=== PATIENT | female | born 1970 | race Caucasian/White ===

== ENCOUNTER 2021-11-16 13:23 | Emergency (ER) | payer SELFPAY ==
[~2021-11-16] VITALS: Ht 160 cm; Wt 88.9 kg
[2021-11-16 14:23] VITALS: BP 133/79
[2021-11-16] MEDS ORDERED: ACETAMINOPHEN EXTRA STRENGTH 500 MG TAB PO ONE (14:30)
[2021-11-16] MEDS ORDERED: ONDANSETRON 4 MG ODT PO ONE (14:35)
--- NOTE | 2021-11-16 14:50 | NUR ---
COVID CPR SWAB DONE.
[2021-11-16] MEDS ORDERED: ONDA-188 SL (15:37)
[2021-11-16] MEDS ORDERED: ACET-10509 PO (15:37)
[2021-11-16] MEDS ORDERED: ALBU0.0912 IH (15:37)
[2021-11-16] MEDS ORDERED: PROM118S5 PO (15:37)
[2021-11-16] MEDS ORDERED: AZIT250T4 PO (15:37)
[2021-11-16] MEDS ORDERED: PRED10TA5 PO (15:37)
--- NOTE | 2021-11-16 16:14 | NUR ---
Patient discharged with v/s stable. Written and verbal after care instructions given and explained. Patient alert, oriented and verbalized understanding of instructions. Ambulatory with steady gait. All questions addressed prior to discharge. ID band removed. Patient advised to follow up with PMD. Rx of TYLENOL, ALBUTEROL, AZITHRO, ZOFRAN, PREDNISONE, PROMETHZINE given. Patient educated on indication of medication including possible reaction and side effects. Opportunity to ask questions provided and answered.
[2021-11-16 16:15] VITALS: BP 121/68
== END 2021-11-16 16:14 | disposition home or self-care (01) ==
LOC: MED 13:23
DX: J18.9 Pneumonia, unspecified organism (principal); Z20.822 Contact with and (suspected) exposure to COVID-19; Z79.899 Other long term (current) drug therapy
CPT/HCPCS: 71045; 99284; Q0092; Q0162; U0003